=== PATIENT | male | born 2005 | race Caucasian/White ===

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

== ENCOUNTER 2024-07-03 02:21 | Emergency (ER) | payer OTHER, SELFPAY ==
--- NOTE | ~2024-07-03 | XR_ITS ---
EXAMINATION: XR chest 1V portable DATE: 07/03/2024 03:29 INDICATION: Shortness of breath TECHNIQUE: frontal view of the chest was obtained. COMPARISON: Chest radiograph dated 02/10/2013 FINDINGS: The lungs are clear with no focal airspace opacities, pulmonary edema, pleural effusion or pneumothor ax. The cardiomediastinal silhouette is normal. Visualized bones and soft tissues are unremarkable. IMPRESSION: 1. Normal chest radiograph. Reviewed, dictated and finalized at location A. IMPRESSION: 1. Normal chest radiograph.
--- NOTE | 2024-07-03 02:22 | ECG_ITS ---
Test Date: 2024-07-03 02:44:47 Measurements Intervals [place] Rate: 91 P: 70 DE: 138 QRS: 76 QRSD: 89 T: 58 QT: 322 QTc: 398 Interpretive Statements SINUS RHYTHM NORMAL ECG No previous ECG available for comparison Electronically Signed On 07-03-2024 05:44:16 CDT by Grover Serrano D.O.
[2024-07-03 02:26] VITALS: BP 147/97; PULSE 97; RESP 21; O2SAT 97
[2024-07-03 02:40] VITALS: PULSE 60; RESP 23
[2024-07-03] MEDS: ALBUTEROL SULFATE NEB 2.5 MG/3 ML INH 15 MG INHALATION (02:40)
[2024-07-03] MEDS: IPRATROPIUM BR 0.02% INH SOLN 0.5 MG/2.5 ML VIAL 1 MG INHALATION (02:40)
[2024-07-03] MEDS: predniSONE 20 MG TABLET 40 MG PO (03:00)
[2024-07-03 03:01] VITALS: O2SAT 95
[2024-07-03] MEDS: LACTATED RINGERS 1,000 ML 999 ML IV CONT (03:15)
--- NOTE | 2024-07-03 03:30 | ED.SOB ---
HPI - SOB/Dyspnea General Chief Complaint: Shortness of Breath/Dyspnea Stated Complaint: sob Time Seen by Provider: 07/03/24 02:30 History of Present Illness HPI Narrative: Patient was having several days of runny nose, cough, and then started having increasing shortness of breath. Had asthma as a child. Related Data Allergies Allergy/AdvReac Type Severity Reaction Status Date / Time Penicillins Allergy Mild Unknown Verified 07/03/24 03:03 peanut Allergy Unknown Unknown Verified 07/03/24 03:03 Review of Systems Review of Systems: All systems reviewed & are unremarkable except as noted in HPI and below Exam Narrative: EXAMINATION OF ORGAN SYSTEMS/BODY AREAS: Constitutional: Vital signs per nursing GENERAL:[No acute distress, non-toxic appearing.] HEAD: Normal with no signs of head trauma. EYES: EOMI, conjunctiva normal ENT: Hearing grossly intact LUNGS: Nonlabored breathing. Full sentences. Extensive wheezing with diminished lung sounds all lung jha HEART: [Regular rate and rhythm] ABD: [Soft], [nontender to palpation] EXT: Normal range of motion SKIN: [No rashes or lesions.] NEURO: [Alert and oriented x 3. No gross focal sensory or strength deficits.] PSYCH: Normal affect Course Vital Signs Vital signs: Vital Signs Pulse Rate 97 07/03/24 02:26 Respiratory Rate 21 H 07/03/24 02:26 Blood Pressure 147/97 H 07/03/24 02:26 Pulse Oximetry 97 07/03/24 02:26 Oxygen Delivery Room Air 07/03/24 02:26 Pulse Rate 78 07/03/24 03:50 Respiratory Rate 20 07/03/24 03:50 Blood Pressure 147/97 H 07/03/24 02:26 Pulse Oximetry 95 07/03/24 03:01 Oxygen Delivery Room Air 07/03/24 03:01 MDM - SOB/Dyspnea MDM Narrative Medical decision making narrative: Patient presents with several days of URI symptoms followed by several days of feeling short of breath. Does smoke, history of childhood asthma. Wheezing on exam with diminished lung sounds, given breathing treatments here, when IV placed patient became vasovagal and felt like he was going to pass out, IV fluids were ordered. On re-evaluation after breathing treatments he feels much better, breathing now improved, on re-evaluation no longer wheezing. Stable for discharge, with several days of steroids, counseled to stop smoking return precautions provided and PCP information given. Discharge Plan Discharge Clinical Impression: Acute bronchitis with asthma Patient Disposition: Home, Self-Care Condition: Stable Instructions: Antibiotic Form, Acute Bronchitis (ED) Additional Instructions: please add smoking cigarettes. Take the medications as prescribed and follow-up with a primary care doctor, you can always return to the emergency room for any further issues. Prescriptions: New prednisone 20 mg tablet 40 mg PO DAILY 4 Days Qty: 8 0RF albuterol sulfate 90 mcg/actuation HFA aerosol inhaler 2 puff inhalation QID PRN (Reason: shortness of breath or wheezing) Qty: 8.5 0RF No Action methylprednisolone [Methylpred DP] 4 mg tablets,dose pack See Rx Instructions .ROUTE .COMPLEX Qty: 21 0RF Rx Instructions: orally per package directions loratadine [Claritin] 10 mg tablet 10 mg PO DAILY Qty: 20 1RF epinephrine 0.3 mg/0.3 mL auto-injector 0.3 mg IM ONCE Qty: 1 1RF Rx Instructions: as a single dose Follow-up/Referrals: Cleve Bal DO [Physician] - 2 Days PHYSICIAN NOT ON STAFF,NONSTAFF [Primary Care Provider] -
[2024-07-03 03:50] VITALS: PULSE 78; RESP 20
[2024-07-03 04:27] VITALS: BP 120/78; PULSE 82; RESP 16; O2SAT 98
== END 2024-07-03 04:28 | disposition home or self-care (01) ==
PROVIDERS: Emergency Provider Emergency Medicine
DX: J20.9 Acute bronchitis, unspecified (principal); J45.909 Unspecified asthma, uncomplicated
CPT/HCPCS: 71045; 93005; 94640; 96360; 99284; J7120; J7512

== ENCOUNTER 2024-08-27 20:48 | Emergency (ER) | payer OTHER, SELFPAY ==
[2024-08-27 20:50] VITALS: BP 106/57; PULSE 85; RESP 15; TEMP 36.9; O2SAT 100
--- NOTE | 2024-08-27 22:54 | PC.NURSE ---
Patient callef for in triage area; no answer
== END 2024-08-27 23:09 | disposition left against medical advice (07) ==
DX: L50.9 Urticaria, unspecified (principal)
CPT/HCPCS: 99199

== ENCOUNTER 2025-03-15 04:17 | Emergency (ER) | payer OTHER, SELFPAY ==
[2025-03-15] VITALS (7 sets, daily range): BP systolic 108–149; BP diastolic 58–99; PULSE 80–120; RESP 14–18; TEMP 36.6; O2SAT 97–100
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
--- NOTE | ~2025-03-15 | CT_ITS ---
Noncontrast CT scan of the cervical spine Technique: Multiple contiguous axial [address] images of the cervical spine were obtained and rec onstructed in 2D sagittal and coronal planes on the acquisition scanner. Dose reduction technique was used on this scan by utilizing automated exposure control, adjustment of the mA and/or kV according to patient size. The dose-length product (DLP) was 423.12 mGy-cm. Clinical History: Pain Findings: No fractures or dislocations. Unremarkable visualized bony structures. The intervertebral disc spaces are preserved. No prevertebral soft tissue swelling. Impression: No fracture or subluxation of the cervical spine. Reviewed, dictated and finalized at location . Impression: No fracture or subluxation of the cervical spine.
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
[2025-03-15] MEDS: IBUPROFEN 400 MG TABLET 800 MG PO (05:39)
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
== END 2025-03-15 07:12 | disposition home or self-care (01) ==
PROVIDERS: Emergency Provider Student in an Organized Health Care Education/Training Program
DX: M25.511 Pain in right shoulder (principal); T14.8XXA Other injury of unspecified body region, initial encounter; V48.0XXA Car driver injured in noncollision transport accident in nontraffic accident, initial encounter
CPT/HCPCS: 70450; 72125; 73030; 73070; 99284; A9270